=== PATIENT | female | born 1975 | race Caucasian/White ===

== ENCOUNTER 2017-04-27 04:12 | Emergency (ER) | payer MEDICAID ==
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
== END 2017-04-27 05:15 | disposition home or self-care (01) ==
LOC: ER 04:12
DX: M54.5 Low back pain (principal)
CPT/HCPCS: 99283; 96372; J1885; Z7502